=== PATIENT | female | born 1955 | race African-American/Black ===

== ENCOUNTER 2019-04-03 05:30 | Inpatient (IN) ==
[2019-04-03] MEDS ORDERED: ACETAMINOPHEN 500 MG TABLET PO ONE (06:00)
[2019-04-03] MEDS ORDERED: GABAPENTIN 400 MG CAPSULE PO ONE (06:00)
[2019-04-03] MEDS ORDERED: DIAZEPAM 5 MG TABLET PO ONE (06:00)
[2019-04-03] MEDS ORDERED: FAMOTIDINE 20 MG TABLET PO ONE (06:00)
[2019-04-03] MEDS ORDERED: ceFAZolin 2,000 MG in SYRINGE 1 EACH IV ONE (06:30)
[2019-04-03] MEDS ORDERED: VANCOMYCIN INJ 1,000 MG in SODIUM CHLORIDE 0.9% 250 ML IV ONE (06:30)
[2019-04-03 06:38] LABS: Apearance,Urine Slightly Hazy (Clear); Bilirubin,Urine Negative (Negative); Blood, Urine Small mg/dL (Negative); Glucose,Urine (UA) Negative (Negative); Hyaline Casts,Urine 2 /LPF (0-3); Ketones,Urine Negative (Negative); Mucus,Urine Occasional /LPF (Occasional); Nitrite,Urine Negative (Negative); Protein,Urine Negative; RBC,Urine 4 /HPF (0-4); Squamous Epithelial Cell,Urine Occasional /HPF (0-10); Urine Color Yellow (Yellow); Urine Specific Gravity 1.021 (1.001-1.035); Urine Urobilinogen < 2.0 EU/DL (0.2-1.0); WBC,Urine 2 /HPF (0-6)
[2019-04-03] MEDS ORDERED: LACTATED RINGERS 1,000 ML IV SCH (08:30)
[2019-04-03] MEDS ORDERED: VANCOMYCIN 1,000 MG VIAL ONE (08:33)
[2019-04-03] MEDS ORDERED: GABAPENTIN 400 MG CAPSULE ONE (10:05)
[2019-04-03] MEDS ORDERED: ACETAMINOPHEN 500 MG TABLET ONE (10:05)
[2019-04-03] MEDS ORDERED: FAMOTIDINE 20 MG TABLET ONE (10:05)
[2019-04-03] MEDS ORDERED: DIAZEPAM 5 MG TABLET ONE (10:05)
[2019-04-03] MEDS ORDERED: DEXAMETHASONE 4 MG/1 ML VIAL ONE (10:37)
[2019-04-03] MEDS ORDERED: EPINEPHrine 1 MG/ML VIAL ONE (10:37)
[2019-04-03] MEDS ORDERED: BUPIVACAINE 0.5% 50 ML VIAL ONE (10:37)
[2019-04-03] MEDS ORDERED: LIDOCAINE 1% 5 ML VIAL ONE (10:37)
[2019-04-03] MEDS ORDERED: BUPIVACAINE SPINAL 0.75% 2 ML AMP SPINAL ONE (10:38)
[2019-04-03] MEDS ORDERED: BUPIVACAINE MPF 0.25% 30 ML VIAL ONE (10:43)
[2019-04-03] MEDS ORDERED: diphenhydrAMINE CAP 25 MG CAPSULE PO PRN (11:23)
[2019-04-03] MEDS ORDERED: ONDANSETRON 4 MG/2 ML VIAL IV PRN ×2 (11:23→13:11)
[2019-04-03] MEDS ORDERED: oxyCODONE IR 5 MG TABLET PO PRN ×2 (11:23)
[2019-04-03] MEDS ORDERED: ZALEPLON 5 MG CAPSULE PO PRN (11:23)
[2019-04-03] MEDS ORDERED: MORPHINE 4 MG/1 ML VIAL IV PRN ×2 (11:23)
[2019-04-03] MEDS ORDERED: NEOMYCIN/POLYMYXIN/BACITRACIN OINT 28.4 GM TUBE TOP ONE (12:30)
[2019-04-03] MEDS ORDERED: PROMETHAZINE INJ 25 MG in SODIUM CHLORIDE 0.9% 50 ML IV PRN (13:11)
[2019-04-03] MEDS ORDERED: MEPERIDINE 25 MG/1 ML VIAL IV PRN (13:11)
[2019-04-03 13:17] LABS: Apearance,Urine CLEAR (Clear); Bacteria,Urine Occasional /HPF (Few); Bilirubin,Urine Negative (Negative); Blood, Urine Negative (Negative); Glucose,Urine (UA) Negative (Negative); Ketones,Urine Negative (Negative); Mucus,Urine Occasional /LPF (Occasional); Nitrite,Urine Negative (Negative); Protein,Urine Negative; RBC,Urine 1 /HPF (0-4); Squamous Epithelial Cell,Urine Occasional /HPF (0-10); Urine Color Yellow (Yellow); Urine Specific Gravity 1.019 (1.001-1.035); Urine Urobilinogen < 2.0 EU/DL (0.2-1.0); WBC,Urine 1 /HPF (0-6)
[2019-04-03] MEDS ORDERED: KETOROLAC 30 MG/1 ML VIAL ONE (13:34)
[2019-04-03] MEDS: KETOROLAC 30 MG/1 ML VIAL IV SCH ×2 (13:36→19:03)
[2019-04-03] MEDS: LACTATED RINGERS 1,000 ML IV SCH (13:38)
[2019-04-03] MEDS: ACETAMINOPHEN 500 MG TABLET PO SCH ×2 (16:05→21:10)
[2019-04-03] MEDS: ceFAZolin 2,000 MG in PREMIX 1 EACH IV SCH (19:03)
[2019-04-03] MEDS: DOCUSATE SODIUM 100 MG CAPSULE PO SCH (21:10)
[2019-04-04] MEDS: LACTATED RINGERS 1,000 ML IV SCH ×3 (00:02→04:33)
[2019-04-04] MEDS: KETOROLAC 30 MG/1 ML VIAL IV SCH ×2 (00:39→06:07)
[2019-04-04] MEDS: ceFAZolin 2,000 MG in PREMIX 1 EACH IV SCH (03:29)
[2019-04-04] MEDS: ACETAMINOPHEN 500 MG TABLET PO SCH ×2 (03:30→10:17)
[2019-04-04 04:21] LABS: Basophils % 0.1 % (0.0-0.8); Hematocrit 24.1 VOL% (35.7-47.0); Hemoglobin 7.8 GM/DL (12.0-16.0); Immature Granulocytes % 0.2 %; Immature Granulocytes Absolute 0.02 #; Lymphocytes # 1.2 10*3/uL (1.4-4.0); Lymphocytes % 14.9 % (21.3-54.2); Mean Corpuscular HGB Conc 32.4 GM/DL (32-36); Mean Corpuscular Volume 92.3 FL (87-102); Mean Platelet Volume 11.7 FL (9.6-12.0); Monocytes % 8.7 % (1.7-12.7); Neutrophils % 76.1 % (38.7-73.9); Platelet Count 195 T/CUMM (130-400); Red Blood Count 2.61 MC/CUMM (3.8-5.5); Red Cell Distribution Width 12.7 % (9.3-17.3); White Blood Count 8.1 T/CUMM (4-12)
[2019-04-04 04:56] LABS: Calcium 8.8 MG/DL (8.5-10.1); Osmolality,Calculated 283.3 MOS/KG (273-304)
[2019-04-04] MEDS: FONDAPARINUX 2.5 MG/0.5 ML SYRINGE SUBCUT SCH (06:07)
[2019-04-04] MEDS ORDERED: SODIUM CHLORIDE 0.9% 1,000 ML IV PRN (06:28)
[2019-04-04] MEDS ORDERED: FUROSEMIDE 20 MG/2 ML VIAL IV PRN (06:28)
[2019-04-04] MEDS: ROSUVASTATIN 10 MG TABLET PO SCH (10:00)
[2019-04-04] MEDS: MULTIVITAMIN (CENTRUM) TABLET PO SCH (10:00)
[2019-04-04] MEDS: LISINOPRIL 5 MG TABLET PO SCH (10:00)
[2019-04-04] MEDS: NEBIVOLOL 10 MG TABLET PO SCH (10:00)
[2019-04-04] MEDS: DOCUSATE SODIUM 100 MG CAPSULE PO SCH ×2 (10:00→20:56)
[2019-04-04] MEDS: amLODIPine 5 MG TABLET PO SCH (10:00)
[2019-04-04] MEDS: CELECOXIB 200 MG CAPSULE PO SCH (19:00)
[2019-04-04 20:31] LABS: Hematocrit 29.8 VOL% (35.7-47.0)
[2019-04-04 20:32] LABS: Hemoglobin 9.8 GM/DL (12.0-16.0)
[2019-04-05] MEDS: FONDAPARINUX 2.5 MG/0.5 ML SYRINGE SUBCUT SCH (04:41)
[2019-04-05 05:37] LABS: Basophils % 0.2 % (0.0-0.8); Eosinophils # 0.1 10*3/uL (0.0-0.87); Eosinophils % 0.9 % (0.00-10.9); Hematocrit 30.4 VOL% (35.7-47.0); Hemoglobin 10.2 GM/DL (12.0-16.0); Immature Granulocytes % 0.5 %; Immature Granulocytes Absolute 0.04 #; Lymphocytes # 2.2 10*3/uL (1.4-4.0); Lymphocytes % 26.3 % (21.3-54.2); Mean Corpuscular HGB Conc 33.6 GM/DL (32-36); Mean Platelet Volume 11.2 FL (9.6-12.0); Neutrophils % 60.1 % (38.7-73.9); Platelet Count 174 T/CUMM (130-400); Red Blood Count 3.34 MC/CUMM (3.8-5.5); Red Cell Distribution Width 13.3 % (9.3-17.3); White Blood Count 8.5 T/CUMM (4-12)
[2019-04-05] MEDS: NEBIVOLOL 10 MG TABLET PO SCH (09:01)
[2019-04-05] MEDS: CELECOXIB 200 MG CAPSULE PO SCH (09:01)
[2019-04-05] MEDS: LISINOPRIL 5 MG TABLET PO SCH (09:02)
[2019-04-05] MEDS: ROSUVASTATIN 10 MG TABLET PO SCH (09:02)
[2019-04-05] MEDS: amLODIPine 5 MG TABLET PO SCH (09:02)
[2019-04-05] MEDS: MULTIVITAMIN (CENTRUM) TABLET PO SCH (09:02)
[2019-04-05] MEDS: DOCUSATE SODIUM 100 MG CAPSULE PO SCH ×2 (09:03→21:03)
[2019-04-05] MEDS: MAGNESIUM HYDROXIDE SUSP 30 ML UDCUP PO PRN ×2 (09:06→16:33)
[2019-04-05] MEDS: ASPIRIN EC 81 MG TABLET PO SCH (15:10)
[2019-04-06 06:12] LABS: Basophils % 0.4 % (0.0-0.8); Eosinophils # 0.1 10*3/uL (0.0-0.87); Eosinophils % 1.3 % (0.00-10.9); Hematocrit 31.3 VOL% (35.7-47.0); Hemoglobin 10.2 GM/DL (12.0-16.0); Immature Granulocytes % 0.4 %; Immature Granulocytes Absolute 0.03 #; Lymphocytes # 2.3 10*3/uL (1.4-4.0); Lymphocytes % 28.3 % (21.3-54.2); Mean Corpuscular HGB Conc 32.6 GM/DL (32-36); Mean Corpuscular Volume 92.1 FL (87-102); Mean Platelet Volume 11.4 FL (9.6-12.0); Monocytes % 11.7 % (1.7-12.7); Neutrophils % 57.9 % (38.7-73.9); Platelet Count 191 T/CUMM (130-400); Red Cell Distribution Width 13.3 % (9.3-17.3)
[2019-04-06] MEDS: ASPIRIN EC 81 MG TABLET PO SCH (10:22)
[2019-04-06] MEDS: amLODIPine 5 MG TABLET PO SCH (10:22)
[2019-04-06] MEDS: LISINOPRIL 5 MG TABLET PO SCH (10:22)
[2019-04-06] MEDS: MULTIVITAMIN (CENTRUM) TABLET PO SCH (10:22)
[2019-04-06] MEDS: ROSUVASTATIN 10 MG TABLET PO SCH (10:22)
[2019-04-06] MEDS: CELECOXIB 200 MG CAPSULE PO SCH (10:23)
[2019-04-06] MEDS: NEBIVOLOL 10 MG TABLET PO SCH (10:23)
[2019-04-06] MEDS: DOCUSATE SODIUM 100 MG CAPSULE PO SCH (11:01)
[2019-04-06 16:12] VITALS: BP 100/62
== END 2019-04-06 18:06 | disposition home health service (06) | DRG 470 ==
LOC: N.OR 05:30 → N.SDSINP 05:32 → N.3E 15:14 → EDSTATUS 16:45
PROVIDERS: ADMIT Orthopaedic Surgery; ATTEND Orthopaedic Surgery